=== PATIENT | female | born 1990 | race Caucasian/White ===

== ENCOUNTER 2016-11-05 15:52 | Outpatient (CLI) | payer OTHER ==
[2016-11-05 19:37] LABS: BASOPHILS # (AUTO) 0.1 10^3/uL (0.0-0.1); BASOPHILS % (AUTO) 0.8 %; EOSINOPHILS # (AUTO) 0.2 10^3/uL (0.0-0.7); EOSINOPHILS % (AUTO) 2.9 %; HCT - HEMATOCRIT 42.6 % (37.0-47.0); HGB - HEMOGLOBIN 14.1 g/dL (12.0-16.0); LYMPHOCYTES # (AUTO) 3.1 10^3/uL (1.5-3.5); LYMPHOCYTES % (AUTO) 38.7 %; MEAN CORPUSCULAR HEMOGLOBIN 28.9 pg (27.0-31.0); MEAN CORPUSCULAR HGB CONC 33.2 g/dL (32.0-36.0); MEAN CORPUSCULAR VOLUME 87.1 fL (81.0-99.0); MEAN PLATELET VOLUME 8.3 fL (7.9-10.8); MONOCYTES # (AUTO) 0.5 10^3/uL (0.0-1.0); MONOCYTES % (AUTO) 6.2 %; NEUTROPHILS # (AUTO) 4.1 10^3/uL (1.5-6.6); NEUTROPHILS % (AUTO) 51.4 %; RED BLOOD COUNT 4.89 10^6/uL (4.20-5.40); RED CELL DISTRIBUTION WIDTH 13.3 % (12.0-15.0)
[2016-11-05 19:43] LABS: CALCIUM 9.1 mg/dL (8.5-10.3); CARBON DIOXIDE - CO2 30 mmol/L (21-32); CHLORIDE 104 mmol/L (101-111); GLUCOSE 100 mg/dL (70-100); SODIUM 140 mmol/L (135-145)
[2016-11-05 19:47] LABS: ALBUMIN/GLOBULIN RATIO 1.1 (1.0-2.2); BILIRUBIN,TOTAL 0.3 mg/dL (0.2-1.0); BUN - BLOOD UREA NITROGEN 13 mg/dL (6-20); CREATININE 0.8 mg/dL (0.4-1.0); GFR - MDRD 88 (>89); TOTAL PROTEIN 7.3 g/dL (6.7-8.2)
== END 2016-11-05 15:53 ==
LOC: LAB.F 15:52
PROVIDERS: ATTEND Physician Assistant Medical
DX: N91.2 Amenorrhea, unspecified (principal); D64.9 Anemia, unspecified; K52.9 Noninfective gastroenteritis and colitis, unspecified
CPT/HCPCS: 36415; 80053; 84703; 85025

== ENCOUNTER 2016-11-06 08:00 | Outpatient (CLI) | payer OTHER | END 2016-11-06 08:01 | disposition home or self-care (01) | LOC: LAB.R 08:00 | PROVIDERS: ATTEND Physician Assistant Medical | DX: K52.9 Noninfective gastroenteritis and colitis, unspecified (principal) | CPT/HCPCS: 87045; 87046; 87177; 87209 ==

== ENCOUNTER 2016-12-07 10:23 | Outpatient (CLI) | payer OTHER ==
[2016-12-07 11:20] LABS: HEMOGLOBIN A1C 0.56 g/dL
[2016-12-07 12:50] LABS: FOLLICLE STIMULATING HORMONE 2.64 mIU/mL
[2016-12-07 12:51] LABS: LUTEINIZING HORMONE 2.15 mIU/mL
== END 2016-12-07 10:24 | disposition home or self-care (01) ==
LOC: LAB 10:23
PROVIDERS: ATTEND Obstetrics & Gynecology
DX: E28.2 Polycystic ovarian syndrome (principal)
CPT/HCPCS: 36415; 82626; 83001; 83002; 83036

== ENCOUNTER 2016-12-11 16:40 | Outpatient (CLI) | payer OTHER ==
--- NOTE | 2016-12-12 22:35 | Ultrasound Report ---
EXAM: PELVIC ULTRASOUND EXAM DATE: 12/11/2016 05:39 PM. CLINICAL HISTORY: Polycystic ovarian syndrome. COMPARISON: None. TECHNIQUE: Realtime transabdominal pelvic scan performed to identify the uterus and adnexa and as an overview of other pelvic structures, followed by transvaginal scan to provide greater detail of the u terus and adnexa, with static image documentation. FINDINGS: Uterus: 8.2 x 2.9 x 5.3 cm, volume 65.2 cc. Anteverted position. Normal overall size and echotexture. Masses: None. Endometrium: 5.4 mm. Normal. Cervix: Unremarkable. Right Ovary: 4.3 x 3 x 2.4 cm, volume 16 cc. Normal echotexture and blood flow. Left Ovary: 3.4 x 2.6 x 3.3 cm, volume 15.1 cc. Normal echotexture and blood flow. Multiple follicles are noted. Free Fluid: None. Other: Study limited by body habitus. IMPRESSION: 1. Normal endometrium and uterus. 2. Mildly increased bilateral ovarian volumes noted. Multiple small subcentimeter left ovarian follic les. However, the number of follicles is less than 10 in each ovary. [facility] Referring Provider Line: [phone] SITE ID: [id number]
== END 2016-12-11 16:41 | disposition home or self-care (01) ==
LOC: DI 16:40
PROVIDERS: ATTEND Obstetrics & Gynecology
DX: E28.2 Polycystic ovarian syndrome (principal)
CPT/HCPCS: 76830; 76856

== ENCOUNTER 2017-12-27 16:47 | Outpatient (CLI) | payer BC ==
--- NOTE | 2017-12-27 22:10 | Ultrasound Report ---
Reason: ENCTR FOR TEST, RESULT POSITIVE Procedure Date: 12/27/2017 Accession Number: [id number] / [id number] Procedure: US - OB First Trimester CPT Code: FULL RESULT: EXAM: FIRST TRIMESTER OBSTETRIC ULTRASOUND (Less than 11 weeks) EXAM DATE: 12/27/2017 05:41 PM. CLINICAL HISTORY: Positive test. History of PCOS. Dating. LMP: 10/30/2017, clinical VANESSA 08/06/2018 (8-2/7 weeks. COMPARISONS: Pelvic ultrasound 12/11/2016. TECHNIQUE: Transabdominal and transvaginal ultrasound examination with static image documentation. ASSESSMENT: Gestational Sac: Single intrauterine. Mean gestational sac diameter: 20 mm = 6-3/7 weeks. Embryo: CRL (crown-rump length) 7.0 mm = 6-4/7 weeks, ultrasound VANESSA 08/18/2018. Cardiac activity: 142 beats per minute. Yolk sac: 3.2 mm. Amniotic fluid: Grossly appropriate at this gestational age. Placental position: Indeterminate at this time. Other: No perigestational fluid collection demonstrated. MATERNAL STRUCTURES: Uterus: Anteverted. No mass evident. Cervix: Closed. Right Ovary: Seen only on transabdominal scan. 3.1 x 2 x 2.9 cm, volume 9.4 cc. Grossly unremarkable. Left Ovary: 4 x 2.8 x 1.9 cm, volume 11.1 cc. Unremarkable. Free Fluid: None. Other: No adnexal mass evident. IMPRESSION: 1. Single living IUP at 6-4/7 weeks by ultrasound for VANESSA 08/18/2018, discordant from the reported LMP. 2. Assigned VANESSA is based on the current ultrasound. 3. No acute findings identified. [facility]
== END 2017-12-27 16:48 | disposition home or self-care (01) ==
LOC: DI 16:47
PROVIDERS: ATTEND Obstetrics & Gynecology
DX: Z32.01 Encounter for pregnancy test, result positive (principal); Z3A.01 Less than 8 weeks gestation of pregnancy
CPT/HCPCS: 76801; 76817

== ENCOUNTER 2018-01-11 08:00 | Outpatient (CLI) | payer BC ==
[2018-01-12 15:47] LABS: MUDS CUTOFF CONCENTRATIONS CUTOFF CONC BELOW:
[2018-01-12 16:54] LABS: AMPHETAMINE SCREEN,URINE NEGATIVE (NEGATIVE); BENZODIAZEPINES SCREEN, URINE NEGATIVE (NEGATIVE); COCAINE SCREEN URINE NEGATIVE (NEGATIVE); METHADONE SCREEN, URINE NEGATIVE (NEGATIVE); METHAMPHETAMINES SCREEN, URINE NEGATIVE (NEGATIVE); OPIATE SCREEN, URINE NEGATIVE (NEGATIVE); OXYCODONE SCREEN, URINE NEGATIVE (NEGATIVE); PROPOXYPHENE SCREEN, URINE NEGATIVE (NEGATIVE); TRICYCLIC ANTIDEPRESSANT,URINE NEGATIVE (NEGATIVE)
== END 2018-01-11 23:59 ==
LOC: LAB.R 08:00
PROVIDERS: ATTEND Obstetrics & Gynecology
DX: Z36.9 Encounter for antenatal screening, unspecified (principal)
CPT/HCPCS: 80306

== ENCOUNTER 2018-01-11 16:38 | Outpatient (CLI) | payer BC ==
[2018-01-11 16:55] LABS: BASOPHILS # (AUTO) 0.1 10^3/uL (0.0-0.1); BASOPHILS % (AUTO) 0.8 %; EOSINOPHILS # (AUTO) 0.2 10^3/uL (0.0-0.7); EOSINOPHILS % (AUTO) 1.3 %; LYMPHOCYTES # (AUTO) 3.7 10^3/uL (1.5-3.5); LYMPHOCYTES % (AUTO) 30.7 %; MEAN CORPUSCULAR HEMOGLOBIN 28.7 pg (27.0-31.0); MEAN CORPUSCULAR HGB CONC 33.5 g/dL (32.0-36.0); MEAN CORPUSCULAR VOLUME 85.8 fL (81.0-99.0); MEAN PLATELET VOLUME 7.5 fL (7.9-10.8); MONOCYTES # (AUTO) 0.7 10^3/uL (0.0-1.0); NEUTROPHILS # (AUTO) 7.3 10^3/uL (1.5-6.6); NEUTROPHILS % (AUTO) 61.2 %; PLT - PLATELET COUNT 308 10^3/uL (130-450); RED BLOOD COUNT 4.53 10^6/uL (4.20-5.40)
[2018-01-11 17:00] LABS: BILIRUBIN,URINE NEGATIVE (NEGATIVE); GLUCOSE, URINE (UA) NEGATIVE (NEGATIVE); KETONES,URINE (UA) NEGATIVE (NEGATIVE); LEUKOCYTE ESTERASE, URINE LARGE (NEGATIVE); NITRITE,URINE NEGATIVE (NEGATIVE); OCCULT BLOOD,URINE MODERATE (NEGATIVE); PROTEIN,URINE NEGATIVE (NEGATIVE); UROBILINOGEN,URINE 0.2 (NORMAL) E.U./dL (NORMAL)
[2018-01-11 17:11] LABS: BACTERIA,URINE Rare /HPF (None Seen); CLARITY,URINE CLEAR (CLEAR); RBC,URINE 0-5 /HPF (0-5); SQUAMOUS EPITHELIAL CELL,UR MANY Squamous (<= Few)
[2018-01-12 11:18] LABS: HEPATITIS C ANTIBODY NON-REACTIVE (NON-REACTIVE)
[2018-01-12 13:26] LABS: HEPATITIS B SURFACE ANTIGEN NON-REACTIVE (NON-REACTIVE)
[2018-01-12 13:36] LABS: HIV AG/AB 4TH GEN NON-REACTIVE (NON-REACTIVE)
== END 2018-01-11 16:39 | disposition home or self-care (01) ==
LOC: LAB 16:38
PROVIDERS: ATTEND Obstetrics & Gynecology
DX: Z36.9 Encounter for antenatal screening, unspecified (principal)
CPT/HCPCS: 36415; 81001; 81599; 85025; 86592; 86762; 86803; 86850; 86900; 86901; 87340; 87389

== ENCOUNTER 2018-03-04 07:29 | Outpatient (CLI) | payer BC | END 2018-03-04 07:30 | disposition home or self-care (01) | LOC: LAB 07:29 | PROVIDERS: ATTEND Obstetrics & Gynecology | DX: E66.01 Morbid (severe) obesity due to excess calories (principal) | CPT/HCPCS: 36415; 82950 ==

== ENCOUNTER 2018-03-17 09:49 | Outpatient (CLI) | payer BC ==
--- NOTE | 2018-03-17 15:06 | Ultrasound Report ---
Reason: MORBID OBESITY Procedure Date: 03/17/2018 Accession Number: [id number] / [id number] Procedure: US - OB 14+ Weeks CPT Code: FULL RESULT: EXAM: LIMITED OBSTETRICAL ULTRASOUND EARLY SECOND TRIMESTER EXAM DATE: 03/17/2018 12:00 PM. CLINICAL HISTORY: MORBID OBESITY. COMPARISON: None. TECHNIQUE: Real-time sonographic evaluation of the fetus performed by the coal mine inspector. Multiple brand representative static images were saved for review. DATING: Established EGA 18 weeks 0 days with VANESSA 08/18/2018 based on stated dating. EGA 19 weeks 1 day with VANESSA 08/10/2018 based on current ultrasound. GENERAL EVALUATION Prieto . Cardiac activity: 140 bpm. movement: Visualized. Presentation: Variable Placenta: Anterior position. No evidence for previa. Amniotic fluid: Normal 10.9 cm. 3.8 BIOMETRY Bi-Parietal Diameter (BPD): 4.6 cm, 19 weeks/5 days Head Circumference (HC): 16.4 cm, 19 weeks/0 days Abdominal Circumference (AC): 3.1 cm, 18 weeks/for days Femur Length (FL): 3 cm, 19 weeks/2 days Estimated Weight: 268 g, 93 percentile ANATOMY Within the limits of early second trimester ultrasound, no anatomic abnormality is detected. The profile/nasal bone, visualized intracranial structures, anterior abdominal wall, cord insert region, stomach, and bladder are visualized and appear normal for gestational age. Cardiac situs is normal. Both upper and lower extremities are visualized. MATERNAL STRUCTURES Uterus: Unremarkable. Cervix: Long and closed. Right ovary/adnexa: Unremarkable. Left ovary/adnexa: Unremarkable. Free fluid: None. IMPRESSION: 1. Prieto live intrauterine with gestational age 18 weeks/0 days based on stated dating 2. Estimated weight is 93rd percentile 3. Normal limited early second trimester anatomy. Full anatomic survey not completed. Recommend full anatomic survey at 20-22 weeks [facility]
== END 2018-03-17 09:50 | disposition home or self-care (01) ==
LOC: DI 09:49
PROVIDERS: ATTEND Obstetrics & Gynecology
DX: O99.212 Obesity complicating pregnancy, second trimester (principal); E66.01 Morbid (severe) obesity due to excess calories; Z3A.18 18 weeks gestation of pregnancy
CPT/HCPCS: 76805

== ENCOUNTER 2018-03-21 07:34 | Outpatient (CLI) | payer BC | END 2018-03-21 07:35 | disposition home or self-care (01) | LOC: LAB 07:34 | PROVIDERS: ATTEND Obstetrics & Gynecology | DX: O99.810 Abnormal glucose complicating pregnancy (principal) | CPT/HCPCS: 36415; 82951; 82952 ==

== ENCOUNTER 2018-04-07 13:40 | Outpatient (CLI) | payer BC | END 2018-04-07 13:41 | disposition home or self-care (01) | LOC: NS 13:40 | PROVIDERS: ATTEND Obstetrics & Gynecology | DX: Z71.3 Dietary counseling and surveillance (principal); O24.410 Gestational diabetes mellitus in pregnancy, diet controlled; O99.210 Obesity complicating pregnancy, unspecified trimester; O99.810 Abnormal glucose complicating pregnancy | CPT/HCPCS: 97802 ==

== ENCOUNTER 2021-05-08 08:00 | Outpatient (CLI) | payer BC ==
[2021-05-08 20:44] LABS: BILIRUBIN,URINE NEGATIVE (NEGATIVE); GLUCOSE, URINE (UA) NEGATIVE (NEGATIVE); KETONES,URINE (UA) NEGATIVE (NEGATIVE); LEUKOCYTE ESTERASE, URINE NEGATIVE (NEGATIVE); NITRITE,URINE NEGATIVE (NEGATIVE); OCCULT BLOOD,URINE LARGE (NEGATIVE); PROTEIN,URINE NEGATIVE (NEGATIVE); UROBILINOGEN,URINE 0.2 (NORMAL) E.U./dL (NORMAL)
[2021-05-08 20:45] LABS: CLARITY,URINE CLEAR (CLEAR)
[2021-05-08 20:53] LABS: BACTERIA,URINE Moderate /HPF (None Seen); SQUAMOUS EPITHELIAL CELL,UR RARE Squamous (<= Few); WBC,URINE 0-3 /HPF (0-5)
== END 2021-05-08 23:59 | disposition home or self-care (01) ==
LOC: LAB 08:00
PROVIDERS: ATTEND Physician Assistant Medical
DX: N39.0 Urinary tract infection, site not specified (principal)
CPT/HCPCS: 81001; 87086

== ENCOUNTER 2021-06-27 13:45 | Outpatient (CLI) | payer BC | END 2021-06-27 13:46 | disposition home or self-care (01) | LOC: LAB.S 13:45 | PROVIDERS: ATTEND Obstetrics & Gynecology | DX: Z32.01 Encounter for pregnancy test, result positive (principal); Z78.9 Other specified health status | CPT/HCPCS: 36415; 84702 ==

== ENCOUNTER 2021-06-29 08:00 | Outpatient (CLI) | payer BC ==
[2021-06-29 18:45] LABS: BILIRUBIN,URINE NEGATIVE (NEGATIVE); GLUCOSE, URINE (UA) NEGATIVE (NEGATIVE); KETONES,URINE (UA) NEGATIVE (NEGATIVE); LEUKOCYTE ESTERASE, URINE NEGATIVE (NEGATIVE); NITRITE,URINE NEGATIVE (NEGATIVE); OCCULT BLOOD,URINE LARGE (NEGATIVE); PH,URINE 5.5 PH (5.0-7.5); PROTEIN,URINE 30 mg/dL (NEGATIVE); UROBILINOGEN,URINE 0.2 (NORMAL) E.U./dL (NORMAL)
[2021-06-29 18:48] LABS: CLARITY,URINE TURBID (CLEAR)
[2021-06-29 19:08] LABS: AMORPHOUS SEDIMENT,UR Marked /LPF; BACTERIA,URINE None Seen /HPF (None Seen); RBC,URINE TNTC /HPF (0-5); SQUAMOUS EPITHELIAL CELL,UR NONE SEEN (<= Few); WBC,URINE 0-3 /HPF (0-5)
== END 2021-06-29 23:59 | disposition home or self-care (01) ==
LOC: LAB 08:00
PROVIDERS: ATTEND Emergency Medicine
DX: R30.0 Dysuria (principal)
CPT/HCPCS: 81001; 87086

== ENCOUNTER 2021-06-30 16:30 | Outpatient (CLI) | payer BC | END 2021-06-30 16:31 | disposition home or self-care (01) | LOC: LAB.S 16:30 | PROVIDERS: ATTEND Obstetrics & Gynecology | DX: Z32.01 Encounter for pregnancy test, result positive (principal); Z78.9 Other specified health status | CPT/HCPCS: 36415; 84702 ==

== ENCOUNTER 2022-01-02 14:43 | Outpatient (CLI) | payer BC | END 2022-01-02 14:44 | disposition home or self-care (01) | LOC: LAB.S 14:43 | PROVIDERS: ATTEND Internal Medicine | DX: E28.2 Polycystic ovarian syndrome (principal); E66.01 Morbid (severe) obesity due to excess calories; Z68.44 Body mass index [BMI] 60.0-69.9, adult | CPT/HCPCS: 36415; 80299; 81599; 82533 ==

== ENCOUNTER 2022-04-23 08:00 | Outpatient (CLI) | payer BC | END 2022-04-23 23:59 | disposition home or self-care (01) | LOC: LAB.S 08:00 | PROVIDERS: ATTEND Physician Assistant Medical | DX: J02.9 Acute pharyngitis, unspecified (principal) | CPT/HCPCS: 87070 ==

== ENCOUNTER 2023-08-02 09:43 | Outpatient (CLI) | payer BC ==
--- NOTE | 2023-08-02 12:12 | XRAY Report ---
PROCEDURE: Chest 2V INDICATIONS: CHEST CONGESTION,WHEEZING TECHNIQUE: 2 views of the chest were acquired. COMPARISON: None FINDINGS: Surgical changes and devices: None. Lungs and pleura: Diffuse interstitial prominence. Perihilar airway thickening bilaterally. No dense consolidation. No substantial pleural effusion. No pneumothorax. Mediastinum: Mediastinal contours appear normal. Heart size is normal. Bones and chest wall: No suspicious bony lesions. Overlying soft tissues appear unremarkable. IMPRESSION: Diffuse interstitial prominence with mild bilateral perihilar airway thickening suggestive of bronchi tis either infectious or inflammatory in etiology. No focal consolidation identified. Recommend follow-up chest radiograph 4-6 weeks after treatment to document resolution of findings and /or return to baseline exam. Reviewed by: Roni Nelson MD on 08/02/2023 12:11 PM PDT Approved by: Roni Nelson MD on 08/02/2023 12:11 PM PDT Station ID: [id number]
== END 2023-08-02 09:44 | disposition home or self-care (01) ==
LOC: DI.S 09:43
PROVIDERS: ATTEND Physician Assistant Medical
DX: R91.8 Other nonspecific abnormal finding of lung field (principal)